=== PATIENT | male | born 1960 | race Asian ===

== ENCOUNTER 2022-01-30 23:53 | Emergency (ER) | payer OTHER ==
[~2022-01-30] VITALS: Ht 175.3 cm; Wt 63.5 kg
--- NOTE | 2022-01-31 | NUR ---
Dr. Dobson at bedside for MSE.
--- NOTE | 2022-01-31 00:09 | NUR ---
Xray at bedside.
[2022-01-31] MEDS ORDERED: KETOROLAC TROMETHAMINE 15 MG INJ IM ONE (00:15)
[2022-01-31] MEDS ORDERED: KETOROLAC TROMETHAMINE 15 MG INJ ONE (00:23)
[2022-01-31] MEDS ORDERED: IBUP-1955 PO ×2 (00:31→00:47)
[2022-01-31 00:53] VITALS: BP 124/71
--- NOTE | 2022-01-31 00:53 | NUR ---
Patient discharged to home in stable condition. Written and verbal after care instructions given. Patient verbalizes understanding of instructions. Stressed follow up or return to ER for worsening s/s. Patient out of ER with crutches, gait training provided, no falls noted, all belongings taken, VSS, no acute signs of distress, to be driven home by family via private vehicle.
== END 2022-01-31 00:54 | disposition home or self-care (01) ==
LOC: ER 01-31
DX: M25.562 Pain in left knee (principal); F17.210 Nicotine dependence, cigarettes, uncomplicated
CPT/HCPCS: 29505; 73564; 96372; 99283; J1885; A4663